=== PATIENT | female | born 1980 | race Hispanic/Latino ===

== ENCOUNTER 2023-05-05 10:10 | Inpatient (IN) | payer MEDICAID, OTHER ==
[2023-05-05 10:38] VITALS: BMI 31.8
[2023-05-05] MEDS ORDERED: Carboprost 250 MCG/ML AMP IM PRN (11:14)
[2023-05-05] MEDS ORDERED: Misoprostol 200 MCG TAB PR PRN (11:14)
[2023-05-05] MEDS ORDERED: hydrALAZINE 20 MG/ML VIAL SLOW IVP PRN ×2 (11:14→17:05)
[2023-05-05] MEDS ORDERED: Tranexamic Acid 1,000 MG/10 ML VIAL IVP PRN (11:14)
[2023-05-05] MEDS ORDERED: Famotidine/PF 20 mg/2ml Vial SLOW IVP PRN (11:14)
[2023-05-05] MEDS ORDERED: Bicitra 30 ML UDCUP PO PRN (11:14)
[2023-05-05] MEDS ORDERED: Promethazine HCl 25 MG/ML VIAL IM PRN ×2 (11:14→11:49)
[2023-05-05] MEDS ORDERED: Methylergonovine 0.2 MG/ML VIAL IM PRN (11:14)
[2023-05-05] MEDS ORDERED: Ondansetron PF 4 MG/2 ML Vial IVP PRN ×4 (11:14→17:05)
[2023-05-05] MEDS ORDERED: Diphenoxylate HCl/Atropine Tablet PO PRN (11:14)
[2023-05-05] MEDS ORDERED: CEFAZOLIN 2 GM in Sodium Chloride 0.9% 100 ML IVPB SCH (11:15)
[2023-05-05] MEDS ORDERED: Azithromycin 500 MG in Sodium Chloride 0.9% 250 ML 250 ML IVPB SCH (11:15)
[2023-05-05] MEDS ORDERED: Lactated Ringer's 1,000 ML IV SCH (11:15)
[2023-05-05] MEDS ORDERED: Oxytocin 30 units/NS 500 ML 500 ML IV SCH (11:15)
[2023-05-05] MEDS ORDERED: fentaNYL 50 mcg/mL 1 mL Vial SLOW IVP PRN (11:49)
[2023-05-05] MEDS ORDERED: Naloxone HCl 0.4 mg/ml Vial IV PRN (11:49)
[2023-05-05] MEDS ORDERED: Promethazine HCl 25 MG SUPP PR PRN (11:49)
[2023-05-05] MEDS ORDERED: Naloxone HCl 0.4 mg/ml Vial IVP PRN ×2 (11:49)
[2023-05-05] MEDS ORDERED: diphenhydrAMINE 50 MG/ML VIAL IVP PRN (11:49)
[2023-05-05] MEDS ORDERED: Meperidine HCl/PF 25 MG/ML VIAL SLOW IVP PRN (11:49)
[2023-05-05] MEDS ORDERED: Moisturizing Cream (Eucerin) 113 GM JAR TOP PRN (11:49)
[2023-05-05 11:50] LABS: Hematocrit 37.3 % (34.9-44.5); Mean Corpuscular HGB CONC 34.9 g/dL (32.0-36.0); Mean Corpuscular Hemoglobin 33.5 pg (27.0-33.0); Mean Corpuscular Volume 96.1 fl (81.6-98.3); Mean Platelet Volume 11.3 fl (7.4-10.4); Platelet Count 195 10x3/uL (150-450); RBC Distribution Width 14.2 % (11.5-14.5); Red Blood Cell (RBC) Count 3.88 10x6/uL (3.90-5.03)
[2023-05-05] MEDS ORDERED: Morphine PF 10 MG/10 ML VIAL ONE (11:53)
[2023-05-05] MEDS ORDERED: Phenylephrine 10 MG/ML VIAL ONE (11:54)
[2023-05-05] MEDS ORDERED: Communication Order-Pharmacy FS SCH (12:00)
[2023-05-05] MEDS ORDERED: Dexamethasone 4 mg/ml Vial ONE (12:17)
[2023-05-05] MEDS ORDERED: Ketorolac Tromethamine 30 MG/ML VIAL ONE (12:17)
[2023-05-05] MEDS ORDERED: Ondansetron PF 4 MG/2 ML Vial ONE (12:17)
[2023-05-05] MEDS ORDERED: Oxytocin 10 UNITS/ML VIAL ONE (12:42)
[2023-05-05] MEDS ORDERED: Erythromycin Base 0.5% Oint 1 GM TUBE ONE (13:20)
[2023-05-05] MEDS ORDERED: Phytonadione Neonatal 1 MG/0.5 ML AMP ONE (13:20)
[2023-05-05] MEDS ORDERED: Hepatitis B Vaccine 10 MCG/0.5 ML SYR ONE (13:20)
[2023-05-05] MEDS ORDERED: diphenhydrAMINE 50 MG/ML VIAL ONE (13:25)
[2023-05-05] MEDS ORDERED: metroNIDAZOLE 500 MG in Premix 1 BAG IVPB SCH (16:00)
[2023-05-05 16:24] LABS: Platelet Count 187 10x3/uL (150-450)
[2023-05-05 16:24] LABS: Hematocrit 37.3 % (34.9-44.5); Hemoglobin 13.2 g/dL (12.0-15.5); Mean Corpuscular HGB CONC 35.4 g/dL (32.0-36.0); Mean Corpuscular Hemoglobin 34.3 pg (27.0-33.0); Mean Corpuscular Volume 96.9 fl (81.6-98.3); Platelet Count 189 10x3/uL (150-450); RBC Distribution Width 14.2 % (11.5-14.5); Red Blood Cell (RBC) Count 3.85 10x6/uL (3.90-5.03); White Blood Cell (WBC) Count 19.5 10x3/uL (3.5-10.5)
[2023-05-05] MEDS ORDERED: HYDROcodone/Acetaminophen 5/325 mg Tablet PO PRN (17:05)
[2023-05-05] MEDS ORDERED: Simethicone Chewable 80 MG TAB PO PRN (17:05)
[2023-05-05] MEDS ORDERED: Lanolin Ointment 7 GM TUBE TOP PRN (17:05)
[2023-05-05] MEDS ORDERED: Meperidine HCl/PF 25 MG/ML VIAL IM PRN (17:05)
[2023-05-05] MEDS ORDERED: Bisacodyl 10 MG SUPP PR PRN (17:05)
[2023-05-05] MEDS ORDERED: diphenhydrAMINE 25 MG CAP PO PRN (17:05)
[2023-05-05] MEDS ORDERED: Boostrix 0.5 ML (Tdap) VIAL (>/=7 yrs of age) IM ONE (17:05)
[2023-05-05 17:12] LABS: Fibrinogen 380 mg/dL (220-504); INR-International Normal Ratio 0.9; PTT 29.9 sec (22.0-33.0); Prothrombin Time 9.9 sec (9.5-12.1)
[2023-05-05 17:18] LABS: D-Dimer Test Greater than 35.20 mg/L FEU (0.19-0.50)
[2023-05-05] MEDS ORDERED: Ketorolac Tromethamine 30 MG/ML VIAL IVP SCH (19:00)
[2023-05-05] MEDS: Ketorolac Tromethamine 30 MG/ML VIAL IVP SCH (19:27)
[2023-05-05] MEDS: CEFAZOLIN 2 GM in Sodium Chloride 0.9% 100 ML IVPB SCH (21:26)
[2023-05-05] MEDS: Ferrous Sulfate 325 MG TAB PO SCH (21:27)
[2023-05-05] MEDS: Docusate 100 MG CAP PO SCH (21:27)
[2023-05-06] MEDS: metroNIDAZOLE 500 MG in Premix 1 BAG IVPB SCH ×3 (00:57→17:07)
[2023-05-06] MEDS: Ketorolac Tromethamine 30 MG/ML VIAL IVP SCH ×2 (00:57→07:47)
[2023-05-06 04:42] LABS: Hematocrit 29.1 % (34.9-44.5); Hemoglobin 10.2 g/dL (12.0-15.5); Mean Corpuscular HGB CONC 35.1 g/dL (32.0-36.0); Mean Corpuscular Hemoglobin 33.8 pg (27.0-33.0); Mean Corpuscular Volume 96.4 fl (81.6-98.3); Mean Platelet Volume 11.2 fl (7.4-10.4); Platelet Count 153 10x3/uL (150-450); RBC Distribution Width 14.1 % (11.5-14.5); Red Blood Cell (RBC) Count 3.02 10x6/uL (3.90-5.03); White Blood Cell (WBC) Count 11.6 10x3/uL (3.5-10.5)
[2023-05-06] MEDS: CEFAZOLIN 2 GM in Sodium Chloride 0.9% 100 ML IVPB SCH ×3 (05:20→21:04)
[2023-05-06] MEDS: Docusate 100 MG CAP PO SCH ×2 (07:47→21:03)
[2023-05-06] MEDS: Prenatal Vitamin 1 TAB PO SCH (07:47)
[2023-05-06] MEDS: HYDROcodone/Acetaminophen 5/325 mg Tablet PO PRN ×3 (07:47→18:22)
[2023-05-06] MEDS: Ferrous Sulfate 325 MG TAB PO SCH (09:17)
[2023-05-06] MEDS: Ibuprofen 800 MG TAB PO SCH ×2 (13:46→21:03)
[2023-05-07] MEDS: metroNIDAZOLE 500 MG in Premix 1 BAG IVPB SCH ×3 (01:28→17:47)
[2023-05-07] MEDS: HYDROcodone/Acetaminophen 5/325 mg Tablet PO PRN (01:36)
[2023-05-07] MEDS: Ferrous Sulfate 325 MG TAB PO SCH ×3 (01:39→21:46)
[2023-05-07] MEDS: CEFAZOLIN 2 GM in Sodium Chloride 0.9% 100 ML IVPB SCH ×3 (05:21→20:41)
[2023-05-07] MEDS: Ibuprofen 800 MG TAB PO SCH ×3 (05:21→20:41)
[2023-05-07] MEDS: Docusate 100 MG CAP PO SCH ×2 (07:58→20:41)
[2023-05-07] MEDS: Prenatal Vitamin 1 TAB PO SCH (07:58)
[2023-05-08] MEDS: metroNIDAZOLE 500 MG in Premix 1 BAG IVPB SCH (01:20)
[2023-05-08] MEDS: CEFAZOLIN 2 GM in Sodium Chloride 0.9% 100 ML IVPB SCH (06:05)
[2023-05-08] MEDS: Ibuprofen 800 MG TAB PO SCH ×2 (06:05→14:10)
[2023-05-08] MEDS: Ferrous Sulfate 325 MG TAB PO SCH (07:15)
[2023-05-08] MEDS: Docusate 100 MG CAP PO SCH (08:37)
[2023-05-08] MEDS: Prenatal Vitamin 1 TAB PO SCH (08:45)
[2023-05-08] MEDS: HYDROcodone/Acetaminophen 5/325 mg Tablet PO PRN (08:45)
[2023-05-08 09:03] VITALS: BP 118/59; TEMP 98.2
== END 2023-05-08 16:25 | disposition home or self-care (01) | DRG 787 ==
LOC: CSHLD 10:10 → CSHPP 17:37
PROVIDERS: ADMIT Family Medicine; ATTEND Family Medicine
PROC: 10D00Z1 Extraction of Products of Conception, Low, Open Approach (ICD-10-PCS; principal; 2023-05-05)
DX: O34.211 Maternal care for low transverse scar from previous cesarean delivery (principal); O72.1 Other immediate postpartum hemorrhage; Z37.0 Single live birth; Z3A.39 39 weeks gestation of pregnancy; O42.02 Full-term premature rupture of membranes, onset of labor within 24 hours of rupture; Z79.82 Long term (current) use of aspirin; O24.420 Gestational diabetes mellitus in childbirth, diet controlled; O34.13 Maternal care for benign tumor of corpus uteri, third trimester; D25.9 Leiomyoma of uterus, unspecified; O99.892 Other specified diseases and conditions complicating childbirth; N73.6 Female pelvic peritoneal adhesions (postinfective)
CPT/HCPCS: 36415; 85027; 85049; 85300; 85362; 85379; 85384; 85610; 85730; 86850; 86900; 86901; 90715; J0456; J1100; J1200; J1885; J2274; J2370; J2405; J2550; J2590; J3490; J7050